=== PATIENT | female | born 1990 | race African-American/Black ===

== ENCOUNTER 2017-03-29 07:49 | Emergency (ER) | payer MEDICAID ==
[2009-12-09 08:19] VITALS: BMI 31.2
== END 2017-03-29 09:12 | disposition home or self-care (01) ==
LOC: D.ER 07:49
DX: J30.9 Allergic rhinitis, unspecified (principal)

== ENCOUNTER → 2017-06-07 16:17 | Emergency (ER) | payer MEDICAID ==
[2009-12-09 08:19] VITALS: BMI 31.2
[2017-06-07 17:09] LABS: BASOPHILS 0.2 % (0-2); HEMATOCRIT 38.3 % (36.0-48.0); HEMOGLOBIN 12.7 g/dL (12-16); IMMATURE GRANULOCYTES 0.2 % (0-5); LYMPHOCYTES 46.9 % (15-50); MCH 29.5 pg (26.0-34.0); MCHC 33.2 g/dL (31.0-37.0); MCV 89.1 fL (80.0-100.0); MEAN PLATELET VOLUME 9.6 fL (7.4-10.4); MONOCYTES 9.6 % (2-11); NEUTROPHILS 42.1 % (40-80); RDW 14.2 % (11.5-14.5); WBC 5.2 10x3/uL (4.8-10.8)
[2017-06-07 17:24] LABS: PLATELET COUNT 330 10x3/uL (130-400)
[2017-06-07 17:34] LABS: HCG SERUM NEGATIVE (NEGATIVE)
[2017-06-07 18:12] LABS: APPEARANCE CLEAR (CLEAR); BILIRUBIN NEGATIVE (NEGATIVE); COLOR YELLOW (YELLOW); GLUCOSE NEGATIVE (NEGATIVE); KETONE NEGATIVE (NEGATIVE); NITRITE NEGATIVE (NEGATIVE); PROTEIN NEGATIVE (NEGATIVE); UROBILINOGEN NORMAL (NORMAL)
[2017-06-07 18:20] LABS: EPITHELIAL CELLS 0-5 /hpf (0-5); WHITE CELLS - URINE 0-5 /hpf (0-5)
[2017-06-07 18:21] LABS: BACTERIA FEW /hpf (NONE SEEN); MUCUS <1+ /lpf (NONE SEEN); RED CELLS - URINE 0-5 /hpf (0-5)
== END | disposition home or self-care (01) ==
LOC: D.ER 16:17
PROVIDERS: Emergency Medicine; Physician Assistant
DX: R10.31 Right lower quadrant pain (principal); N93.9 Abnormal uterine and vaginal bleeding, unspecified

== ENCOUNTER 2017-08-20 07:40 | Emergency (ER) | payer MEDICAID ==
[2009-12-09 08:19] VITALS: BMI 31.2
== END 2017-08-20 08:06 | disposition home or self-care (01) ==
LOC: D.ER 07:40
DX: R51 Headache (principal)

== ENCOUNTER 2018-04-29 15:48 | Emergency (ER) | payer SELFPAY ==
[2009-12-09 08:19] VITALS: Ht 152.4 cm; Wt 70.9 kg
[~2018-04-29] VITALS: Ht 152.4 cm; Wt 70.9 kg
[2018-04-29] MEDS ORDERED: FERROUS SULFAT325 MG PO (15:53)
[2018-04-29 16:20] LABS: HEMATOCRIT 39.7 % (36.0-48.0); HEMOGLOBIN 13.6 g/dL (12-16); MCH 30.1 pg (26.0-34.0); MCHC 34.3 g/dL (31.0-37.0); MCV 87.8 fL (80.0-100.0); MEAN PLATELET VOLUME 9.4 fL (7.4-10.4); PLATELET COUNT 292 10x3/uL (130-400); RBC 4.52 10x6/uL (4.00-5.40); RDW 13.5 % (11.5-14.5); WBC 5.3 10x3/uL (4.8-10.8)
[2018-04-29 16:33] LABS: ALBUMIN 3.8 g/dL (3.4-5.0); ANION GAP 11.9 mmol/L (8-16); BILIRUBIN - TOTAL 0.32 mg/dL (0.2-1.3); CALCIUM 8.9 mg/dL (8.5-10.1); CARBON DIOXIDE 27.2 mmol/L (21.0-32.0); POTASSIUM - SERUM 3.1 mmol/L (3.5-5.1); PROTEIN - SERUM 7.6 g/dL (6.4-8.2)
[2018-04-29 16:33] LABS: APPEARANCE HAZY (CLEAR); BILIRUBIN NEGATIVE (NEGATIVE); COLOR YELLOW (YELLOW); GLUCOSE NEGATIVE (NEGATIVE); KETONE NEGATIVE (NEGATIVE); NITRITE NEGATIVE (NEGATIVE); PROTEIN NEGATIVE (NEGATIVE); SPECIFIC GRAVITY 1.025 (1.005-1.020); UROBILINOGEN NORMAL (NORMAL)
[2018-04-29 16:36] LABS: BACTERIA MODERATE /hpf (NONE SEEN); RED CELLS - URINE 0-5 /hpf (0-5)
[2018-04-29 16:38] LABS: HCG URINE NEGATIVE (NEGATIVE)
[2018-04-29 17:17] LABS: LYMPHOCYTES 59 % (15-50); MONOCYTES 1 % (2-11); NEUTROPHILS 40 % (40-80); PLATELET ESTIMATE NORMAL
[2018-04-29] MEDS ORDERED: CIPRO500 MG PO (18:46)
[2018-04-29] MEDS ORDERED: VOLTAREN75 MG PO (18:46)
[2018-04-29 19:02] VITALS: BP 140/66
== END 2018-04-29 19:03 | disposition home or self-care (01) ==
LOC: D.ER 15:48
PROVIDERS: Emergency Medicine
DX: N39.0 Urinary tract infection, site not specified (principal); R11.0 Nausea